=== PATIENT | female | born 2000 | race Two or more races ===

== ENCOUNTER 2024-07-14 13:12 | Emergency (ER) | payer MEDICAID, OTHER ==
[~2024-07-14] VITALS: Ht 165.1 cm; Wt 60.4 kg
[2024-07-14] MEDS: diphenhdrAMINE HCL 50 MG/1 ML VL IM ONE (13:45)
--- NOTE | 2024-07-14 13:46 | ED.PDOC ---
History of Present Illness HPI Comments 23F presents to the ER w/ no prior Hx associated to the c/c of ABD pain. Pt reports on having light constant ABD pain for 1 year, and ABD pain worsened a lot more during the past coup[le days, especially after eating food. Pt notes on also having N/V as well. Denies chills, fever, /D, SOB, CP or other associated symptoms, modifiers, or recent injuries at this time. Chief Complaint: Abdominal Pain Time Seen by MD: 13:20 Primary Care Provider: NONE Reviewed Notes: Nurses Notes, Medications, Allergies Allergies: Coded Allergies: NO KNOWN ALLERGIES (Unverified , 07/14/24) Information Source: Patient Mode of Arrival: Ambulatory Severity: Mild Timing: Days Duration: Since onset, Days Prehospital treatment: None Past Medical History PAST MEDICAL HISTORY: Denies Surgical History: Denies all surgeries PIPER HELPER History: No Pertinent PIPER HELPER History Family History Family History: Reviewed,noncontributory to illness, Unknown Social History Smoker: Non-Smoker Alcohol: Denies ETOH Use Drugs: Denies Drug Use Lives In: Home Constitutional: denies: chills, diaphoresis, fatigue, fever, malaise, sweats, weakness, others EENTM: denies: blurred vision, double vision, ear bleeding, ear discharge, ear drainage, ear pain, ear ringing, eye pain, eye redness, hearing loss, mouth pain, mouth swelling, nasal discharge, nose bleeding, nose congestion, nose pain, photophobia, tearing, throat pain, throat swelling, voice changes, others Respiratory: denies: cough, hemoptysis, orthopnea, SOB at rest, shortness of breath, SOB with excertion, stridor, wheezing, others Cardiovascular: denies: chest pain, dizzy spells, diaphoresis, Dyspnea on exertion, edema, irregular heart beat, left arm pain, lightheadedness, palpitations, PND, syncope, others Gastrointestinal: reports: abdominal pain, nausea, vomiting; denies: abdomen distended, blood streaked bowels, constipated, diarrhea, dysphagia, difficulty swallowing, hematemesis, melena, poor appetite, poor fluid intake, rectal bleeding, rectal pain, others Genitourinary: denies: abnormal vagina bleeding, burning, dyspareunia, dysuria, flank pain, frequency, hematuria, incontinence, pain, , vagina discharge, urgency, others Neurological: denies: dizziness, fainting, headache, left sided numbness, left sided weakness, numbness, paresthesia, pre-existing deficit, right sided numbness, right sided weakness, seizure, speech problems, tingling, tremors, weakness, others Musculoskeletal: denies: back pain, gout, joint pain, joint swelling, muscle pain, muscle stiffness, neck pain, others Integumetry: denies: bruises, change in color, change in hair/nails, dryness, laceration, lesions, lumps, rash, wounds, others Allergic/Immunocompromised: denies: Difficulty Healing, Frequent Infections, Hives, Itching, others Hematologic/Lymphatic: denies: anemia, blood clots, easy bleeding, easy bruising, swollen glands, others Endocrine: denies: excessive hunger, excessive sweating, excessive thirst, excessive urination, flushing, intolerance to cold, intolerance to heat, unexplained weight gain, unexplained weight loss, others Psychiatric: denies: anxiety, bipolar disorder, depression, hopeless, panic disorder, schizophrenia, sleepless, suicidal, others Physical Exam General Appearance: Moderate Distress HEENT: Normal ENT Inspection, Pharynx Normal, TMs Normal Neck: Full Range of Motion, Non-Tender, Normal, Normal Inspection Respiratory: Chest Non-Tender, Lungs Clear, No Accessory Muscle Use, No Respiratory Distress, Normal Breath Sounds Cardiovascular: No Edema, No JVD, No Murmur, No Gallop, Normal Peripheral Pulses, Regular Rate/Rhythm Breast Exam: Deferred Gastrointestinal: No Organomegaly, Non Tender, No Pulsatile Mass, Normal Bowel Sounds, Soft Genitalia: Deferred Pelvic: Deferred Rectal: Deferred Extremities: No calf tenderness, Normal capillary refill, Normal inspection, Normal range of motion, Non-tender, No pedal edema Musculoskeletal : Apperance: Normal Neurologic: Alert, tool crib manager II-XII nml as Tested, No Motor Deficits, Normal Affect, Normal Mood, No Sensory Deficits Cerebellar Function: Normal Reflexes: Normal Skin: Dry, Normal Color, Warm Peripheral Pulses: 3+ Radial (R), 3+ Radial (L) Lymphatic: No Adenopathy Was a procedure done? Was a procedure done?: No Differential Dx Considerations may include: Normal Anxiety X-Ray, Labs, Meds, VS Vital Signs Date Time Temp Pulse Resp B/P (MAP) Pulse Ox O2 Delivery O2 Flow Rate FiO2 07/14/24 14:13 84 18 99 Room Air 07/14/24 14:13 98.6 84 18 108/74 (85) 99 98.6 07/14/24 13:26 98.6 85 15 140/88 (105) 100 Lab Test 07/14/24 14:22 Range/Units White Blood Count 6.1 4.4-10.8 10^3/uL Red Blood Count 4.67 4.0-5.20 10^6/uL Hemoglobin 15.5 12.2-16.2 g/dL Hematocrit 46.0 36.0-46.0 % Mean Corpuscular Volume 98.7 80.0-100.0 fL Mean Corpuscular Hemoglobin 33.1 H 28.0-32.0 pg Mean Corpuscular Hemoglobin Concent 33.6 32.0-36.0 g/dL Red Cell Distribution Width 13.5 11.8-14.3 % Platelet Count 217 140-450 10^3/uL Mean Platelet Volume 8.3 6.9-10.8 fL Neutrophils (%) (Auto) 49.4 37.0-80.0 % Lymphocytes (%) (Auto) 39.8 10.0-50.0 % Monocytes (%) (Auto) 8.9 0.0-12.0 % Eosinophils (%) (Auto) 1.5 0.0-7.0 % Basophils (%) (Auto) 0.4 0.0-2.0 % Neutrophils # (Auto) 3.0 1.6-8.6 10 ^3/uL Lymphocytes # (Auto) 2.4 0.4-5.4 10 ^3/uL Monocytes # (Auto) 0.5 0-1.3 10 ^3/uL Eosinophils # (Auto) 0.1 0-0.8 10 ^3/uL Basophils # (Auto) 0 0-0.2 10 ^3/uL Nucleated Red Blood Cells 0.2 % Sodium Level 143 136-145 mmol/L Potassium Level 4.1 3.5-5.1 mmol/L Chloride Level 109 H 98-107 mmol/L Carbon Dioxide Level 26 20-31 mmol/L Anion Gap 8 5-15 Blood Urea Nitrogen 15 9-23 mg/dL Creatinine 0.73 0.550-1.02 mg/dL Glomerular Filtration Rate Calc 118 >90 mL/min BUN/Creatinine Ratio 20.5 H 10.0-20.0 Serum Glucose 83 74-106 mg/dL Calcium Level 10.3 8.7-10.4 mg/dL Total Bilirubin 0.4 0.2-1.0 mg/dL Beta HCG, Quantitative 0.2 L 1.5-4.2 mIU/mL Patient alert. Anxious. Vitals stable. Answering all questions. Saturation pristine on room air. No calf tenderness. No leg swelling. Abdomen is soft nontender. Possible gallstones. WBC within normal limits. Hemoglobin within normal limits. Explained to the patient. Was told to follow up with her primary care physician. Was told to come back if there is any problem. Time of 1ST Reevaluation: 13:50 Reevaluation 1ST: Improved Patient Education/Counseling: Diagnosis, Treatment, Prognosis Family Education/Counseling: No Family Present Departure 1 Departure Time of Disposition: 15:11 Impression: Primary Impression: Gastritis Qualified Codes: K29.00 - Acute gastritis without bleeding Disposition: 01 HOME / SELF CARE / HOMELESS Condition: Good e-Prescriptions Pantoprazole Sodium Sesquihydr (Protonix) 40 Mg Tab 40 MG PO DAILY for 10 Days, #10 TAB Prov: WALTER FONTAINE MD 07/14/24 Discharged With: Self Critical Care Note Critical Care Time?: No Stability Stability form required: No Heart Score Heart Score: Heart Score Response (Comments) Value History N/A 0 EKG N/A 0 Age N/A 0 Risk Factors N/A 0 Troponin N/A 0 Total 0 I personally scribed for WALTER FONTAINE MD ([email or web address]) on 07/14/24 at 14:26. Electronically submitted by Justo Gonzalez ([email or web address]). WALTER FONTAINE MD Jul 14, 2024 13:46
[2024-07-14 14:58] LABS: Basophils # (auto) 0 10 ^3/uL (0-0.2); Basophils % (auto) 0.4 % (0.0-2.0); Eosinophils # (auto) 0.1 10 ^3/uL (0-0.8); Eosinophils % (auto) 1.5 % (0.0-7.0); Hemoglobin 15.5 g/dL (12.2-16.2); Lymphocytes # (auto) 2.4 10 ^3/uL (0.4-5.4); Lymphocytes % (auto) 39.8 % (10.0-50.0); Mean Corpuscular Hemoglobin 33.1 pg (28.0-32.0); Mean Corpuscular Hgb Conc. 33.6 g/dL (32.0-36.0); Mean Corpuscular Volume 98.7 fL (80.0-100.0); Monocytes # (auto) 0.5 10 ^3/uL (0-1.3); Monocytes % (auto) 8.9 % (0.0-12.0); Neutrophils % (auto) 49.4 % (37.0-80.0); Nucleated Red Blood Cells % 0.2 %; Platelet Count (auto) 217 10^3/uL (140-450); Red Blood Cells 4.67 10^6/uL (4.0-5.20); Red Cell Distribution Width 13.5 % (11.8-14.3); White Blood Cell 6.1 10^3/uL (4.4-10.8)
[2024-07-14 15:02] LABS: Potassium 4.1 mmol/L (3.5-5.1); Sodium 143 mmol/L (136-145)
[2024-07-14 15:03] LABS: Anion Gap 8 (5-15); Calcium 10.3 mg/dL (8.7-10.4); Carbon Dioxide 26 mmol/L (20-31)
[2024-07-14 15:08] LABS: BUN/Creatinine Ratio 20.5 (10.0-20.0); Blood Urea Nitrogen 15 mg/dL (9-23); Glucose 83 mg/dL (74-106)
[2024-07-14 15:10] LABS: Bilirubin, Total 0.4 mg/dL (0.2-1.0)
[2024-07-14 15:11] LABS: Chloride 109 mmol/L (98-107)
[2024-07-14] MEDS ORDERED: PANT40TA2 PO (16:37)
[2024-07-14 16:55] VITALS: BP 105/66; PULSE 72; RESP 18; TEMP 97.8; O2SAT 98
== END 2024-07-14 16:58 | disposition home or self-care (01) ==
LOC: ER 13:12
DX: K29.70 Gastritis, unspecified, without bleeding (principal); R10.2 Pelvic and perineal pain
CPT/HCPCS: 36415; 80048; 82247; 84702; 85025

== ENCOUNTER 2024-10-30 09:53 | Emergency (ER) | payer MEDICAID ==
[~2024-10-30] VITALS: Ht 157.5 cm; Wt 57.0 kg
[~2024-10-30 09:53] MED LIST: PANT40TA2 PO
--- NOTE | 2024-10-30 10:09 | ED.PDOC ---
History of Present Illness HPI Comments 23F who is macedonian speaking, presents to the ER w/ no prior Hx associated to the c/c of ABD pain. Pt reports that she has had similar pain 3 months ago in the RUQ but it went away and it is now back. Pt states that she currently has right sided ABD pain and even right flank pain. Pt notes on also having N/V as well. Denies chills, fever, /D, SOB, CP no other associated symptoms, modifiers, recent injuries or sick contacts at this time. 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 Pertinent MOTOR VEHICLE FIELD REPRESENTATIVE History Family History Family History: Reviewed,noncontributory to illness, Unknown Social History Smoker: Non-Smoker Alcohol: Denies ETOH Use Drugs: Denies Drug Use Lives In: Home Constitutional: denies: chills, diaphoresis, fatigue, fever, malaise, sweats, weakness, others EENTM: denies: blurred vision, double vision, ear bleeding, ear discharge, ear drainage, ear pain, ear ringing, eye pain, eye redness, hearing loss, mouth p ain, mouth swelling, nasal discharge, nose bleeding, nose congestion, nose pain, photophobia, tearing, throat pain, throat swelling, voice changes, others Respiratory: denies: cough, hemoptysis, orthopnea, SOB at rest, shortness of br eath, SOB with excertion, stridor, wheezing, others Cardiovascular: denies: chest pain, dizzy spells, diaphoresis, Dyspnea on exertion, edema, irregular heart beat, left arm pain, lightheadedness, palpitations, PND, syncope, others Gastrointestinal: reports: abdominal pain, nausea, vomiting; denies: abdomen distended, blood streaked bowels, constipated, diarrhea, dysphagia, difficulty swallowing, hematemesis, melena, poor appetite, poor fluid intake, rectal bleeding, rectal pain, others Genitourinary: denies: abnormal vagina bleeding, burning, dyspareunia, dysuria, flank pain, frequency, hematuria, incontinence, pain, , vagina discharge, urgency, others Neurological: denies: dizziness, fainting, headache, left sided numbness, left sided weakness, numbness, paresthesia, pre-existing deficit, right sided numbness, right sided weakness, seizure, speech problems, tingling, tremors, weakness, others Musculoskeletal: denies: back pain, gout, joint pain, joint swelling, muscle pain, muscle stiffness, neck pain, others Integumetry: denies: bruises, change in color, change in hair/nails, dryness, laceration, lesions, lumps, rash, wounds, others Allergic/Immunocompromised: denies: Difficulty Healing, Frequent Infections, Hives, Itching, others Hematologic/Lymphatic: denies: anemia, blood clots, easy bleeding, easy bruising, swollen glands, others Endocrine: denies: excessive hunger, excessive sweating, excessive thirst, excessive urination, flushing, intolerance to cold, intolerance to heat, unexplained weight gain, unexplained weight loss, others Psychiatric: denies: anxiety, bipolar disorder, depression, hopeless, panic disorder, schizophrenia, sleepless, suicidal, others All Other Systems: Reviewed and Negative Physical Exam General Appearance: Moderate Distress, Normal HEENT: Normal ENT Inspection, Pharynx Normal, TMs Normal Neck: Full Range of Motion, Non-Tender, Normal, Normal Inspection Respiratory: Chest Non-Tender, Lungs Clear, No Accessory Muscle Use, No Respiratory Distress, Normal Breath Sounds Cardiovascular: No Edema, No JVD, No Murmur, No Gallop, Normal Peripheral Pulses, Regular Rate/Rhythm Breast Exam: Deferred Gastrointestinal: No Organomegaly, Non Tender, No Pulsatile Mass, Normal Bowel Sounds, Soft Genitalia: Deferred Pelvic: Deferred Rectal: Deferred Extremities: No calf tenderness, Normal capillary refill, Normal inspection, Normal range of motion, Non-tender, No pedal edema Musculoskeletal : Apperance: Normal Neurologic: Alert, pickling solution maker II-XII nml as Tested, No Motor Deficits, Normal Affect, Normal Mood, No Sensory Deficits Cerebellar Function: Normal Reflexes: Normal Skin: Dry, Normal Color, Warm Peripheral Pulses: 3+ Radial (R), 3+ Radial (L) Lymphatic: No Adenopathy Was a procedure done? Was a procedure done?: No Differential Dx Considerations may include: Kidney stone Electrolyte imbalance X-Ray, Labs, Meds, VS Vital Signs Date Time Temp Pulse Resp B/P (MAP) Pulse Ox O2 Delivery O2 Flow Rate FiO2 10/30/24 10:15 98 18 98 Room Air* 0 21 10/30/24 10:15 98.3 98 18 116/85 (95) 98 98.3 10/30/24 10:04 98.0 98 16 107/68 (81) 98 98.0 Lab Test 10/30/24 10:10 10/30/24 10:05 Range/Units White Blood Count 7.1 4.4-10.8 10^3/uL Red Blood Count 4.49 4.0-5.20 10^6/uL Hemoglobin 15.2 12.2-16.2 g/dL Hematocrit 43.7 36.0-46.0 % Mean Corpuscular Volume 97.4 80.0-100.0 fL Mean Corpuscular Hemoglobin 33.8 H 28.0-32.0 pg Mean Corpuscular Hemoglobin Concent 34.7 32.0-36.0 g/dL Red Cell Distribution Width 13.7 11.8-14.3 % Platelet Count 203 140-450 10^3/uL Mean Platelet Volume 8.3 6.9-10.8 fL Neutrophils (%) (Auto) 61.5 37.0-80.0 % Lymphocytes (%) (Auto) 31.9 10.0-50.0 % Monocytes (%) (Auto) 5.5 0.0-12.0 % Eosinophils (%) (Auto) 0.7 0.0-7.0 % Basophils (%) (Auto) 0.4 0.0-2.0 % Neutrophils # (Auto) 4.4 1.6-8.6 10 ^3/uL Lymphocytes # (Auto) 2.3 0.4-5.4 10 ^3/uL Monocytes # (Auto) 0.4 0-1.3 10 ^3/uL Eosinophils # (Auto) 0.1 0-0.8 10 ^3/uL Basophils # (Auto) 0 0-0.2 10 ^3/uL Nucleated Red Blood Cells 0.0 % Sodium Level 141 136-145 mmol/L Potassium Level 3.8 3.5-5.1 mmol/L Chloride Level 106 98-107 mmol/L Carbon Dioxide Level 25 20-31 mmol/L Anion Gap 10 5-15 Blood Urea Nitrogen 15 9-23 mg/dL Creatinine 0.73 0.550-1.02 mg/dL Glomerular Filtration Rate Calc 118 >90 mL/min BUN/Creatinine Ratio 20.5 H 10.0-20.0 Serum Glucose 86 74-106 mg/dL Calcium Level 9.9 8.7-10.4 mg/dL Urine Color Yellow Yellow Urine Clarity Clear Clear Urine pH 6.0 5.0-9.0 Urine Specific [place] 1.030 1.001-1.035 Urine Protein Negative Negative Urine Ketones Negative Negative Urine Blood 1+ H Negative /uL Urine Nitrite Negative Negative Urine Bilirubin Negative Negative Urine Urobilinogen Normal Negative mg/dL Urine Leukocyte Esterase Negative Negative /uL Urine RBC 3 0 - 4 /hpf Urine Microscopic WBC 1 0-5 /HPF Urine Squamous Epithelial Cells Few <5 /hpf Urine Bacteria None seen None Seen /hpf Urine Hyaline Casts Few 0 - 2 /lpf Urine Mucus Few None Seen Urine Glucose Normal Normal mg/dL Current Medications Medications (Trade) Dose Ordered Sig/[place] Route Start Time Stop Time Status Last Admin Ketorolac Tromethamine (Toradol Injection) 60 mg ONCE ONCE IM 10/30/24 10:15 10/30/24 10:16 DC 10/30/24 10:19 Patient alert. Complaining of flank pain. Abdomen is soft nontender. Vitals stable. WBC within normal limits. Hemoglobin within normal limits. Urinalysis shows mild blood. Possibly passed kidney stone. She has been comfortable throughout. Possible early urinary tract infection. Was given pain medication. Was given prescription of Motrin Keflex. Was told to drink plenty of fluids pain Explained to the patient. Was told to follow up with her primary care physician. Was told to come back if there is any problem. Time of 1ST Reevaluation: 10:30 Reevaluation 1ST: Unchanged Time of 2ND Reevaluation: 11:33 Reevaluation 2ND: Improved Patient Education/Counseling: Diagnosis, Treatment, Prognosis Family Education/Counseling: No Family Present Departure 1 Departure Time of Disposition: 11:34 Impression: Primary Impression: Urinary tract infection Qualified Codes: N30.01 - Acute cystitis with hematuria Disposition: HOME / SELF CARE / HOMELESS Condition: Good e-Prescriptions Ibuprofen Micronized (MOTRIN TABLET) 600 Mg Tb 600 MG PO TID PRN for 5 Days, #15 TAB *Black box warning-NSAIDS can increase risk of IA & hypertension, GI irritation, ulceration, bleed, perferation. Do not use post cardiac surgery. Use short duration/lowest effective dose. Prov: WALTER FONTAINE MD 10/30/24 Cephalexin (KEFLEX CAPSULE) 250 Mg Cp 250 MG PO QID for 5 Days, #20 BOTTLE Prov: WALTER FONTAINE MD 10/30/24 Discharged With: Self Critical Care Note Critical Care Time?: No Stability Stability form required: No Heart Score Heart Score: Heart Score Response (Comments) Value History N/A 0 EKG N/A 0 Age N/A 0 Risk Factors N/A 0 Troponin N/A 0 Total 0 I personally scribed for WALTER FONTAINE MD ([email or web address]) on 10/30/24 at 10:09. Electronically submitted by Justo Gonzalez ([email or web address]). WALTER FONTAINE MD Oct 30, 2024 10:09
[2024-10-30 10:15] VITALS: PULSE 98; RESP 18; O2SAT 98
[2024-10-30] MEDS: KETOROLAC TROMETH 60MG/2ML VIAL IM ONE (10:19)
[2024-10-30 10:22] LABS: Urine Bacteria None Seen /hpf (None Seen)
[2024-10-30 10:26] LABS: Basophils # (auto) 0 10 ^3/uL (0-0.2); Basophils % (auto) 0.4 % (0.0-2.0); Eosinophils # (auto) 0.1 10 ^3/uL (0-0.8); Eosinophils % (auto) 0.7 % (0.0-7.0); Hematocrit 43.7 % (36.0-46.0); Hemoglobin 15.2 g/dL (12.2-16.2); Lymphocytes # (auto) 2.3 10 ^3/uL (0.4-5.4); Lymphocytes % (auto) 31.9 % (10.0-50.0); Mean Corpuscular Hemoglobin 33.8 pg (28.0-32.0); Mean Corpuscular Hgb Conc. 34.7 g/dL (32.0-36.0); Mean Corpuscular Volume 97.4 fL (80.0-100.0); Monocytes # (auto) 0.4 10 ^3/uL (0-1.3); Monocytes % (auto) 5.5 % (0.0-12.0); Neutrophils # (auto) 4.4 10 ^3/uL (1.6-8.6); Neutrophils % (auto) 61.5 % (37.0-80.0); Platelet Count (auto) 203 10^3/uL (140-450); Red Blood Cells 4.49 10^6/uL (4.0-5.20); Red Cell Distribution Width 13.7 % (11.8-14.3); White Blood Cell 7.1 10^3/uL (4.4-10.8)
[2024-10-30 10:33] LABS: Urine Blood 1+ /uL (Negative); Urine Clarity Clear (Clear); Urine Color Yellow (Yellow); Urine Hyaline Cast FEW /lpf (0 - 2); Urine Mucus FEW (None Seen); Urine Protein, UAD Negative (Negative); Urine Squamous Epithelial Cell FEW /hpf (<5); Urine Urobilinogen Normal (Negative); Urine WBC 1 /HPF (0-5)
[2024-10-30 10:34] LABS: Anion Gap 10 (5-15); Carbon Dioxide 25 mmol/L (20-31); Chloride 106 mmol/L (98-107); Potassium 3.8 mmol/L (3.5-5.1); Sodium 141 mmol/L (136-145)
[2024-10-30 10:35] LABS: Calcium 9.9 mg/dL (8.7-10.4)
[2024-10-30 10:39] LABS: Glucose 86 mg/dL (74-106)
[2024-10-30 10:40] LABS: BUN/Creatinine Ratio 20.5 (10.0-20.0); Blood Urea Nitrogen 15 mg/dL (9-23)
[2024-10-30] MEDS ORDERED: CEPH250C PO (11:36)
[2024-10-30] MEDS ORDERED: IBU600T PO (11:36)
[2024-10-30 12:07] VITALS: BP 140/74; PULSE 85; RESP 16; TEMP 97.8; O2SAT 100
== END 2024-10-30 12:08 | disposition home or self-care (01) ==
LOC: ER 09:56
DX: N39.0 Urinary tract infection, site not specified (principal)
CPT/HCPCS: 36415; 80048; 81001; 85025; 96372; 99283; J1885